=== PATIENT | female | born 1995 | race African-American/Black ===

== ENCOUNTER → 2024-04-04 | Outpatient (CLI) | payer OTHER | LOC: M RAD 15:40 | PROVIDERS: ATTEND Physician Assistant | DX: Z36.87 Encounter for antenatal screening for uncertain dates (principal); Z3A.18 18 weeks gestation of pregnancy ==

== ENCOUNTER 2024-08-03 13:22 | Inpatient (IN) | payer OTHER ==
[2024-08-03] VITALS (11 sets, daily range): BP systolic 140–186; BP diastolic 88–122; O2SAT 99
[~2024-08-03] VITALS: Ht 154.9 cm; Wt 84.0 kg
[2024-08-03] MEDS ORDERED: TUMS500C PO (13:43)
[2024-08-03] MEDS ORDERED: PRENTAB9 PO (13:43)
[2024-08-03] MEDS ORDERED: ASCO500C3 PO (13:43)
[2024-08-03] MEDS ORDERED: FERR325T3 PO (13:43)
[2024-08-03] MEDS ORDERED: COLA100C5 PO (13:44)
[2024-08-03] MEDS ORDERED: ECOT81TA5 PO (13:44)
[2024-08-03] MEDS ORDERED: HOME MED LIST COMPLETE! XX SCH (13:45)
[2024-08-03] MEDS ORDERED: METHYLERGONOVINE MALEATE 0.2 MG/ML 1 ML VIAL IM PRN (14:45)
[2024-08-03] MEDS ORDERED: LIDOCAINE 1% MDV 20 ML VIAL INFIL PRN (14:45)
[2024-08-03] MEDS ORDERED: OXYTOCIN DRIP 30 UNITS in IV 1 EA IV PRN (14:45)
[2024-08-03] MEDS ORDERED: CARBOPROST TROMETHAMINE 250 MCG/ML AMP IM PRN (14:45)
[2024-08-03] MEDS ORDERED: TRANEXAMIC ACID INJection 1,000 MG in NS 100 ML IV PRN (14:45)
[2024-08-03] MEDS ORDERED: miSOPROStol 200 MCG TABLET PR PRN (14:45)
[2024-08-03 15:09] LABS: HEMATOCRIT 39.6 % (36.0-47.0); HEMOGLOBIN 13.2 g/dl (12.0-15.5); MEAN CORPUSCULAR HEMOGLOBIN 28.6 pg (27.0-33.0); MEAN CORPUSCULAR HGB CONC 33.3 g/dl (32.0-36.5); MEAN CORPUSCULAR VOLUME 85.7 fl (80.0-96.0); PLATELET COUNT, AUTOMATED 217 10^3/uL (150-450); RED BLOOD COUNT 4.62 10^6/uL (4.00-5.40); WHITE BLOOD COUNT 6.9 10^3/uL (4.0-10.0)
[2024-08-03 15:37] LABS: ALT/SGPT 19 U/L (7.0-40); AST/SGOT 28 U/L (<34); BILIRUBIN,TOTAL 0.3 MG/DL (0.3-1.2); CREATININE FOR GFR 0.38 MG/DL (0.55-1.30); GLOMERULAR FILTRATION RATE > 90.0 (>60); LDH LACTATE DEHYDROGENASE 200 U/L (120-246)
[2024-08-03] MEDS ORDERED: LABETALOL 100 MG/20 ML VIAL As Ordered ONE (15:40)
[2024-08-03] MEDS: LABETALOL 100 MG/20 ML VIAL IV STA (15:45)
[2024-08-03 16:10] LABS: HIV 1&2 SCREEN NEGATIVE (NEGATIVE)
[2024-08-03 16:18] LABS: HEPATITIS C VIRUS ABY INDEX 0.05 INDEX (<0.8)
[2024-08-03 16:33] LABS: URIC ACID 4.4 MG/DL (3.1-7.8)
== END 2024-08-03 16:50 | disposition left against medical advice (07) | DRG 833 ==
LOC: M LDO 13:22 → M LDI 14:45 → M LDO 16:50
PROVIDERS: ADMIT Advanced Practice Midwife; ATTEND Advanced Practice Midwife
DX: O14.13 Severe pre-eclampsia, third trimester (principal); O36.8320 Maternal care for abnormalities of the fetal heart rate or rhythm, second trimester, not applicable or unspecified; Z91.198 Patient's noncompliance with other medical treatment and regimen for other reason; Z3A.36 36 weeks gestation of pregnancy; Z79.899 Other long term (current) drug therapy; Z87.59 Personal history of other complications of pregnancy, childbirth and the puerperium

== ENCOUNTER 2024-08-06 22:29 | Inpatient (IN) | payer OTHER ==
[~2024-08-06] VITALS: Ht 154.9 cm; Wt 84.5 kg
[2024-08-06] VITALS (8 sets, daily range): BP systolic 144–184; BP diastolic 92–108; TEMP 96.2; O2SAT 95
[~2024-08-06 22:29] MED LIST: ASCO500C3 PO; COLA100C5 PO; ECOT81TA5 PO; FERR325T3 PO; PRENTAB9 PO; TUMS500C PO
[2024-08-06] MEDS ORDERED: LIDOCAINE 1% MDV 20 ML VIAL INFIL PRN (22:50)
[2024-08-06] MEDS ORDERED: OXYTOCIN INJ 10UNITS/ML 1ML VIAL IM PRN (22:50)
[2024-08-06] MEDS ORDERED: CARBOPROST TROMETHAMINE 250 MCG/ML AMP IM PRN (22:50)
[2024-08-06] MEDS ORDERED: TRANEXAMIC ACID INJection 1,000 MG in NS 100 ML IV PRN (22:50)
[2024-08-06] MEDS ORDERED: OXYTOCIN DRIP 30 UNITS in IV 1 EA IV PRN (22:50)
[2024-08-06] MEDS: NIFEdipine 10 MG CAP PO STA (22:56)
[2024-08-06] MEDS: LR 1,000 ML IV SCH (23:04)
[2024-08-06] MEDS: MAG Sulf (L&D) 4 GM/100 ML 4 GM in IV 1 EA IV ONE (23:04)
[2024-08-06] MEDS: PENICILLIN G POTASSIUM 5 MU IV 5 MU in DEXTROSE 5% (D5W) MINI-BAG PLU 100 ML IV STA (23:10)
[2024-08-06] MEDS: MAG Sulf (OBGYN) 20GM/500ML 20,000 MG in IV 1 EA IV SCH (23:26)
[2024-08-06 23:27] LABS: PLATELET COUNT, AUTOMATED 238 10^3/uL (150-450)
[2024-08-06 23:47] LABS: LDH LACTATE DEHYDROGENASE 180 U/L (120-246)
[2024-08-06 23:48] LABS: ALT/SGPT 26 U/L (7.0-40); AST/SGOT 39 U/L (<34); CREATININE FOR GFR 0.46 MG/DL (0.55-1.30); GLOMERULAR FILTRATION RATE > 90.0 (>60)
[2024-08-06 23:59] LABS: TOTAL PROTEIN,RANDOM URINE 971.5 MG/DL (0.0-14.0)
[2024-08-07] VITALS (69 sets, daily range): BP systolic 95–178; BP diastolic 34–105; TEMP 97.4–97.8; O2SAT 95–100
[2024-08-07] MEDS: OXYTOCIN DRIP 30 UNITS in IV 1 EA IV SCH (00:01)
[2024-08-07 00:15] LABS: HIV 1&2 SCREEN NEGATIVE (NEGATIVE)
[2024-08-07] MEDS ORDERED: NALOXONE INJ 0.4MG/1ML VIAL IV PRN (00:15)
[2024-08-07] MEDS ORDERED: LR 500 ML IV PRN (00:15)
[2024-08-07] MEDS ORDERED: diphenhydrAMINE 50 MG/ML VIAL IV PRN (00:15)
[2024-08-07] MEDS ORDERED: EPIDURAL/PCA KEYS XX PRN (00:15)
[2024-08-07] MEDS ORDERED: FENTANYL 2 MCG/ML ROPIVACAINE 0.2% IN 0.9% NACL 100 ML IVBAG As Ordered ONE (00:15)
[2024-08-07 00:23] LABS: HEPATITIS C VIRUS ABY INDEX 0.05 INDEX (<0.8)
[2024-08-07] MEDS: ONDANSETRON 4MG 2ML VIAL IV PRN (00:59)
[2024-08-07] MEDS: FENTANYL/ROPIVACAINE/NACL BAG 100 ML EPIDURAL SCH (01:06)
[2024-08-07] MEDS: PEN G POT 3,000,000 UNIT/50 ML 3,000,000 UNIT in IV 1 EA IV SCH (03:40)
[2024-08-07] MEDS ORDERED: ANUSOL HC CREAM 30 GM TOP PRN (07:25)
[2024-08-07] MEDS ORDERED: MOM 30 ML SUSPENSION UDC PO PRN (07:25)
[2024-08-07] MEDS ORDERED: IBUPROFEN 600 MG TAB PO PRN (07:25)
[2024-08-07] MEDS ORDERED: RHOGAM 300MCG (1500IU) INJ IM SCH (07:25)
[2024-08-07] MEDS ORDERED: ACETAMINOPHEN 325 MG TAB PO PRN (07:25)
[2024-08-07] MEDS: PRENATAL VITAMINS CHEWABLE TABLET PO SCH (08:22)
[2024-08-07] MEDS: IBUPROFEN 800 MG TAB PO PRN (08:22)
[2024-08-07] MEDS: LABETALOL 100 MG/20 ML VIAL IV STA (10:57)
[2024-08-07] MEDS: LABETALOL 200 MG TAB PO SCH (11:01)
[2024-08-07] MEDS: DIBUCAINE 1% OINTMENT 30 GM TOP PRN (17:53)
[2024-08-07] MEDS: ACETAMINOPHEN 500 MG TAB PO PRN (22:11)
[2024-08-08] VITALS (11 sets, daily range): BP systolic 135–166; BP diastolic 74–102; TEMP 97.6–98.2; O2SAT 98–100
[2024-08-08] MEDS: LABETALOL 200 MG TAB PO SCH (15:15)
[2024-08-08] MEDS: DOCUSATE SODIUM 100 MG CAPSULE PO PRN (22:12)
[2024-08-09] VITALS (14 sets, daily range): BP systolic 146–172; BP diastolic 58–108; O2SAT 99–100
[2024-08-09] MEDS ORDERED: NIFEdipine 10 MG CAP PO SCH (06:05)
[2024-08-09] MEDS: NIFEdipine 30MG XL TAB PO SCH (06:21)
[2024-08-09] MEDS: MEASLES,MUMPS,RUBELLA VACCINE INJ (MMR-II) SC.IMMUN ONE (08:57)
[2024-08-09] MEDS: hydrALAZINE 20 MG/ML 1 ML VIAL IV STA ×2 (10:11→15:14)
[2024-08-09] MEDS: LABETALOL 200 MG TAB PO ONE (10:38)
[2024-08-09] MEDS ORDERED: LABETALOL 200 MG TAB PO SCH (16:00)
[2024-08-09] MEDS: LABETALOL 200 MG TAB PO SCH (16:05)
[2024-08-10 02:06] VITALS: BP 138/72; O2SAT 99
[2024-08-10 06:07] VITALS: BP 137/77; O2SAT 98
[2024-08-10 08:38] VITALS: BP 142/90
[2024-08-10 10:03] VITALS: O2SAT 100
[2024-08-10 10:49] VITALS: BP 140/100
[2024-08-10] MEDS ORDERED: LABE20TAB PO (11:30)
[2024-08-10] MEDS ORDERED: NIFE1TAB52 PO (11:30)
[2024-08-10 15:19] VITALS: BP 140/102
== END 2024-08-10 17:05 | disposition home or self-care (01) | DRG 768 ==
LOC: M LDI 22:29 → M OBS 08-07 17:49
PROVIDERS: ADMIT Advanced Practice Midwife; ATTEND Advanced Practice Midwife
PROC: 3E033VJ Introduction of Other Hormone into Peripheral Vein, Percutaneous Approach (ICD-10-PCS; 2024-08-06)
PROC: 0UBMXZX Excision of Vulva, External Approach, Diagnostic (ICD-10-PCS; principal; 2024-08-07)
PROC: 10E0XZZ Delivery of Products of Conception, External Approach (ICD-10-PCS; 2024-08-07)
PROC: 10907ZC Drainage of Amniotic Fluid, Therapeutic from Products of Conception, Via Natural or Artificial Opening (ICD-10-PCS; 2024-08-07)
PROC: 0UQMXZZ Repair Vulva, External Approach (ICD-10-PCS; 2024-08-07)
DX: O14.14 Severe pre-eclampsia complicating childbirth (principal); Z37.0 Single live birth; Z3A.37 37 weeks gestation of pregnancy; O99.824 Streptococcus B carrier state complicating childbirth; O32.6XX0 Maternal care for compound presentation, not applicable or unspecified; O71.82 Other specified trauma to perineum and vulva; N76.89 Other specified inflammation of vagina and vulva